=== PATIENT | female | born 1975 | race Hispanic/Latino ===

== ENCOUNTER 2017-06-22 14:13 | Emergency (ER) | payer SELFPAY ==
[2017-06-22] MEDS ORDERED: Acetaminophen/Codeine 30-300mg Tablet ONE (14:34)
--- NOTE | 2017-06-22 15:41 | RAD ---
RIGHT KNEE RADIOGRAPHS FOUR VIEWS: Date: 06-22-17 Provided Clinical History: Right knee pain. FINDINGS: There is no evidence for fracture or other acute osseous abnormality. If there is persistent clinical concern, conservative management and follow up imaging are advised. IMPRESSION: As above. POS: [facility]
== END 2017-06-22 15:20 | disposition home or self-care (01) ==
LOC: ERS 14:13
DX: S83.521A Sprain of posterior cruciate ligament of right knee, initial encounter (principal); X50.1XXA Overexertion from prolonged static or awkward postures, initial encounter; Y92.828 Other wilderness area as the place of occurrence of the external cause